=== PATIENT | male | born 1940 | race Caucasian/White ===

== ENCOUNTER 2024-06-20 08:45 | Inpatient (IN) | payer SELFPAY ==
[2024-06-20] MEDS: Lactated Ringers 1,000 ML IV SCH (09:05)
[2024-06-20] MEDS ORDERED: Sodium Chloride 0.9% 10 ML Syringe FLUSH PRN (09:08)
[2024-06-20] MEDS: Sodium Chloride 0.9% 1,000 ML IV ONE (09:35)
[2024-06-20 09:41] LABS: HEMATOCRIT 49.7 % (42.0-52.0); HEMOGLOBIN 16.9 gm/dl (14.0-18.0); MEAN CORPUSCULAR HEMOGLOBIN 30.9 pg (28.0-32.0); MEAN CORPUSCULAR VOLUME 90.9 fl (83.0-99.0); MEAN PLATELET VOLUME 9.3 fl (9.4-12.4); PLATELET COUNT,PLT 181 K/mm3 (150-400); RED BLOOD CELL COUNT 5.47 M/mm3 (4.52-5.90); WHITE BLOOD CELL COUNT,WBC 10.99 K/mm3 (3.9-11.3)
[2024-06-20 09:59] LABS: INR 1.1; PROTHROMBIN TIME 11.6 SECONDS (9.7-12.0)
[2024-06-20 10:16] LABS: LACTIC ACID 3.2 mmol/L (0.4-2.0)
[2024-06-20 10:17] LABS: A/G RATIO 0.9 (1-2); ALBUMIN 3.3 g/dl (3.4-5.0); ANION GAP 18.7 (5-15); BILIRUBIN TOTAL 0.5 mg/dL (0.2-1.0); BUN/CREATININE RATIO 12.5 (14-18); C-REACTIVE PROTEIN 4.93 mg/dL (<0.30); CALCIUM 8.7 mg/dL (8.5-10.1); EST CRCL DRUG DOSING (CG) 31.79 mL/min; POTASSIUM,K 3.7 mEq/L (3.5-5.1); PROTEIN TOTAL,TP 7.2 g/dl (6.4-8.2)
[2024-06-20] MEDS: cefTRIAXone 2 GM in Sodium Chloride 0.9% 100 ML IV ONE (10:35)
[2024-06-20] MEDS: Sodium Chloride 0.9% 1,000 ML IV SCH (10:35)
[2024-06-20 10:39] LABS: BAND PERCENT MAN 2 % (0-10); BASOPHILS PERCENT MAN 0 (0.2-1.2); EOSINOPHILS PERCENT MAN 1 % (0.8-7.0); LYMPHOCYTES % ATYPICAL MANUAL 0 %; LYMPHOCYTES PERCENT MAN 7 % (20-40); MONOCYTES PERCENT MAN 0 % (2-10); PLATELET COUNT ESTIMATE ADEQUATE
[2024-06-20] MEDS ORDERED: Albuterol/Ipratropium 3.0-0.5 MG/3 ML Neb Soln NEB PRN (14:18)
[2024-06-20] MEDS ORDERED: Naloxone 0.4 MG/ML SDV IVPUSH PRN (14:20)
[2024-06-20] MEDS ORDERED: Melatonin 3 MG Tab PO PRN (14:20)
[2024-06-20] MEDS ORDERED: Sennosides/Docusate Sodium 50-8.6 MG Tab PO PRN (14:20)
[2024-06-20] MEDS ORDERED: Ondansetron 4 MG/2 ML SDV IV PRN (14:20)
[2024-06-20] MEDS ORDERED: Morphine 2 MG/ML SYRINGE IVPUSH PRN (14:20)
[2024-06-20] MEDS ORDERED: ZOLPIDEM TARTRATE 6.25 MG PO PRN (14:23)
[2024-06-20] MEDS: Potassium Chloride 20 MEQ Tab.ER PO ONE ×2 (16:53→16:56)
[2024-06-20] MEDS: guaiFENesin/Dextromethorphan 100-10 MG/5 ML Soln 5 ML Cup PO PRN (16:53)
[2024-06-20] MEDS: Oseltamivir 75 MG Cap PO ONE ×2 (16:54→16:55)
[2024-06-20] MEDS: Azithromycin 500 MG in Sodium Chloride 0.9% 250 ML IV SCH (16:54)
[2024-06-20 17:27] LABS: APPEARANCE,URINE CLEAR (Clear); BILIRUBIN,URINE NEGATIVE (Negative); COLOR,URINE YELLOW (Yellow); GLUCOSE,URINE NEGATIVE (Negative); KETONES,URINE TRACE (Negative); LEUKOCYTE ESTERASE,URINE NEGATIVE (Negative); NITRITE,URINE NEGATIVE (Negative); OCCULT BLOOD,URINE 2+ (Negative); PH,URINE 5.5 (5.0-8.0); PROTEIN,URINE 2+ (Negative); UROBILINOGEN,URINE 0.2 (0.2-1.0)
[2024-06-20 18:01] LABS: BACTERIA,URINE FEW /hpf (FEW); EPITHELIAL CELLS,URINE 0-5 /hpf (0-5); MUCUS,URINE NOT SEEN /hpf (FEW); RBC,URINE 0-5 /hpf (0-5); WBC,URINE 0-5 /hpf (0-5)
[2024-06-20] MEDS: Oseltamivir 30 MG Cap PO SCH (20:27)
[2024-06-20] MEDS: oxyCODONE 5 MG Tab PO PRN (20:27)
[2024-06-20] MEDS: Famotidine 20 MG/2 ML SDV IVPUSH SCH (20:28)
[2024-06-20] MEDS: Loperamide 2 MG Cap PO ONE (21:26)
[2024-06-20] MEDS: Acetaminophen 325 MG Tab PO PRN (21:46)
[2024-06-20] MEDS: Zolpidem 5 MG Tab PO PRN (21:46)
[2024-06-21 05:34] LABS: BASOPHILS PERCENT AUTO 0.1 % (0.0-1.0); EOSINOPHILS PERCENT AUTO 0.1 % (0.0-6.0); HEMATOCRIT 44.9 % (42.0-52.0); IMMATURE GRAN ABSOLUTE AUTO 0.03 K/mm3 (0.00-0.05); IMMATURE GRAN PERCENT AUTO 0.3 % (0.0-0.4); LYMPHOCYTES PERCENT AUTO 19.7 % (24.0-44.0); MEAN CORPUSCULAR HEMOGLOBIN 30.8 pg (28.0-32.0); MEAN CORPUSCULAR HGB CONC 33.2 g/dl (32.0-36.0); MEAN CORPUSCULAR VOLUME 92.8 fl (83.0-99.0); MEAN PLATELET VOLUME 9.6 fl (9.4-12.4); MONOCYTES ABSOLUTE AUTO 0.6 K/mm3 (0.0-0.8); NEUTROPHILS ABSOLUTE AUTO 7.5 K/mm3 (1.8-7.7); NEUTROPHILS PERCENT AUTO 73.8 % (41.0-71.0); PLATELET COUNT,PLT 161 K/mm3 (150-400); RED BLOOD CELL COUNT 4.84 M/mm3 (4.52-5.90)
[2024-06-21 05:42] LABS: HEMOGLOBIN 14.9 gm/dl (14.0-18.0)
[2024-06-21 05:44] LABS: A/G RATIO 0.8 (1-2); ALBUMIN 2.5 g/dl (3.4-5.0); ANION GAP 12.8 (5-15); BILIRUBIN TOTAL 0.4 mg/dL (0.2-1.0); BUN/CREATININE RATIO 11.8 (14-18); C-REACTIVE PROTEIN 10.96 mg/dL (<0.30); CALCIUM 7.7 mg/dL (8.5-10.1); CREATININE 1.1 mg/dL (0.7-1.3); EST CRCL DRUG DOSING (CG) 59.52 mL/min; MAGNESIUM 1.8 mg/dL (1.8-2.4); PHOSPHORUS 2.2 mg/dL (2.6-4.7); POTASSIUM,K 3.8 mEq/L (3.5-5.1); PROTEIN TOTAL,TP 5.8 g/dl (6.4-8.2)
[2024-06-21] MEDS: predniSONE 1 MG Tab PO SCH (06:34)
[2024-06-21] MEDS: Enoxaparin 40 MG/0.4 ML Syringe SUBCUT SCH (08:51)
[2024-06-21] MEDS ORDERED: Non-Formulary Medication 1 Each (Prednisone [Prednisone] 2.5 MG Tablet) PO SCH (09:00)
[2024-06-21] MEDS ORDERED: cefTRIAXone 1 GM in Water For Injection, Sterile 10 ML IV SCH (09:00)
[2024-06-21] MEDS: cefTRIAXone 1 GM Vial IV SCH (09:02)
[2024-06-21] MEDS ORDERED: Potassium Phosphates 30 MMOLE in Sodium Chloride 0.9% 500 ML IV SCH (12:00)
[2024-06-21] MEDS: Magnesium Sulfate/Water Premix 4 GM in Premix Bag 1 BAG IV ONE (12:26)
[2024-06-21] MEDS: Diclofenac Sodium 1% Gel 100 GM Tube TOP PRN (12:40)
[2024-06-21] MEDS: ZOLPIDEM 6.25 MG PO PRN (20:55)
[2024-06-22 05:40] LABS: A/G RATIO 0.7 (1-2); ALBUMIN 2.5 g/dl (3.4-5.0); ANION GAP 12.7 (5-15); BILIRUBIN TOTAL 0.6 mg/dL (0.2-1.0); BUN/CREATININE RATIO 9.1 (14-18); C-REACTIVE PROTEIN 8.13 mg/dL (<0.30); CREATININE 1.1 mg/dL (0.7-1.3); EST CRCL DRUG DOSING (CG) 59.52 mL/min; MAGNESIUM 2.2 mg/dL (1.8-2.4); PHOSPHORUS 2.2 mg/dL (2.6-4.7); POTASSIUM,K 3.7 mEq/L (3.5-5.1); PROTEIN TOTAL,TP 6.1 g/dl (6.4-8.2)
[2024-06-22] MEDS: Potassium Phosphates 30 MMOLE in Sodium Chloride 0.9% 500 ML IV ONE (08:15)
[2024-06-22] MEDS: Loperamide 2 MG Cap PO ONE (13:03)
[2024-06-23 06:01] LABS: A/G RATIO 0.7 (1-2); ALBUMIN 2.6 g/dl (3.4-5.0); ANION GAP 14.7 (5-15); BILIRUBIN TOTAL 0.8 mg/dL (0.2-1.0); C-REACTIVE PROTEIN 3.78 mg/dL (<0.30); CALCIUM 8.5 mg/dL (8.5-10.1); CREATININE 0.9 mg/dL (0.7-1.3); EST CRCL DRUG DOSING (CG) 72.75 mL/min; PHOSPHORUS 2.8 mg/dL (2.6-4.7); POTASSIUM,K 3.7 mEq/L (3.5-5.1); PROTEIN TOTAL,TP 6.2 g/dl (6.4-8.2)
[2024-06-23 07:33] LABS: INR 1.01; PROTHROMBIN TIME 10.7 SECONDS (9.7-12.0)
[2024-06-23 07:35] LABS: PTT,PARTIAL THROMBOPLSTIN TIME 27.6 SECONDS (21.7-31.4)
[2024-06-23] MEDS ORDERED: 50% Dextrose in Water 50 ML Syringe IVPUSH PRN (07:42)
[2024-06-23] MEDS ORDERED: Sodium Chloride 0.9% 10 ML Syringe FLUSH PRN (07:42)
[2024-06-23 08:26] LABS: BASOPHILS PERCENT AUTO 0.2 % (0.0-1.0); EOSINOPHILS PERCENT AUTO 0.3 % (0.0-6.0); HEMATOCRIT 47.4 % (42.0-52.0); HEMOGLOBIN 15.9 gm/dl (14.0-18.0); IMMATURE GRAN ABSOLUTE AUTO 0.01 K/mm3 (0.00-0.05); IMMATURE GRAN PERCENT AUTO 0.2 % (0.0-0.4); LYMPHOCYTES ABSOLUTE AUTO 1.7 K/mm3 (1.0-4.8); MEAN CORPUSCULAR HEMOGLOBIN 30.4 pg (28.0-32.0); MEAN CORPUSCULAR HGB CONC 33.5 g/dl (32.0-36.0); MEAN CORPUSCULAR VOLUME 90.6 fl (83.0-99.0); MEAN PLATELET VOLUME 9.3 fl (9.4-12.4); MONOCYTES ABSOLUTE AUTO 0.7 K/mm3 (0.0-0.8); MONOCYTES PERCENT AUTO 11.9 % (0.0-8.0); NEUTROPHILS ABSOLUTE AUTO 3.3 K/mm3 (1.8-7.7); NEUTROPHILS PERCENT AUTO 57.4 % (41.0-71.0); PLATELET COUNT,PLT 203 K/mm3 (150-400); RED BLOOD CELL COUNT 5.23 M/mm3 (4.52-5.90)
[2024-06-23] MEDS: Tenecteplase 50 MG Kit IVPUSH ONE (08:27)
[2024-06-23] MEDS ORDERED: hydrALAZINE 20 MG/ML SDV IVPUSH PRN (08:38)
[2024-06-23] MEDS ORDERED: Labetalol 100 MG/20 ML MDV IVPUSH PRN (08:38)
[2024-06-23 08:42] LABS: PROTHROMBIN TIME 10.6 SECONDS (9.7-12.0)
[2024-06-23 08:43] LABS: PTT,PARTIAL THROMBOPLSTIN TIME 27.5 SECONDS (21.7-31.4)
[2024-06-23 08:57] LABS: A/G RATIO 0.7 (1-2); ALBUMIN 2.9 g/dl (3.4-5.0); ANION GAP 13.7 (5-15); BILIRUBIN TOTAL 0.9 mg/dL (0.2-1.0); CALCIUM 8.7 mg/dL (8.5-10.1); CREATININE 0.9 mg/dL (0.7-1.3); EST CRCL DRUG DOSING (CG) 72.75 mL/min; POTASSIUM,K 3.7 mEq/L (3.5-5.1); PROTEIN TOTAL,TP 6.8 g/dl (6.4-8.2)
[2024-06-23] MEDS: Oseltamivir 75 MG Cap PO SCH (09:05)
[2024-06-23] MEDS: atorvaSTATin 40 MG Tab PO ONE (09:05)
[2024-06-23] MEDS: Sodium Chloride 0.9% 10 ML Syringe FLUSH SCH (09:09)
[2024-06-23] MEDS: Famotidine 20 MG/2 ML SDV IVPUSH ONE (10:01)
[2024-06-23] MEDS ORDERED: Insulin Lispro 100 Unit/ML 3 ML KwikPen SUBCUT SCH (11:00)
== END 2024-06-23 10:12 | disposition home or self-care (01) | DRG 871 ==
LOC: JD.ED 08:45 → JD.MS 11:19 → JD.ICU 06-23 07:48
PROVIDERS: ADMIT Student in an Organized Health Care Education/Training Program; ATTEND Student in an Organized Health Care Education/Training Program
DX: A41.9 Sepsis, unspecified organism (principal); I63.9 Cerebral infarction, unspecified; J10.00 Influenza due to other identified influenza virus with unspecified type of pneumonia; J96.01 Acute respiratory failure with hypoxia; J15.9 Unspecified bacterial pneumonia; E87.20 Acidosis, unspecified; N17.9 Acute kidney failure, unspecified; R47.01 Aphasia; G70.00 Myasthenia gravis without (acute) exacerbation; R65.20 Severe sepsis without septic shock; G47.00 Insomnia, unspecified; H91.90 Unspecified hearing loss, unspecified ear; N40.0 Benign prostatic hyperplasia without lower urinary tract symptoms; F15.90 Other stimulant use, unspecified, uncomplicated; E86.0 Dehydration; R74.01 Elevation of levels of liver transaminase levels; M19.90 Unspecified osteoarthritis, unspecified site; R29.810 Facial weakness; R29.707 NIHSS score 7; E87.6 Hypokalemia; E83.42 Hypomagnesemia; E83.39 Other disorders of phosphorus metabolism; Z88.1 Allergy status to other antibiotic agents; Z79.899 Other long term (current) drug therapy
CPT/HCPCS: 36415; 70450; 70450-26; 70496; 70496-26; 70498; 70498-26; 71045; 71045-26; 80053; 81001; 82947; 83605; 83735; 84100; 84484; 85007; 85025; 85027; 85610; 85730; 86140; 87040; 87070; 87205; 87428-QW; 93005; 93010; 94667; 94668; 94761; 96361; 96365; 97110-GP; 97116-GP; 97161-GP; 97530-GP; 99223; 99232; 99239; 99285; 99285-25; A9270-GY; J0456; J0696; J1650; J3101; J3475; J3490; J7030; J7040; J7120; J7512